=== PATIENT | female | born 1945 | race Caucasian/White ===

== ENCOUNTER 2022-03-04 13:50 | Emergency (ER) | payer BC, MEDICAID ==
[~2022-03-04] VITALS: Ht 175.3 cm; Wt 113.6 kg
[~2022-03-04 13:50] MED LIST: ACET-3209 PO; ALBU18HF2 IH; BUPR150T27 PO; COU3T PO; ESCI20TA29 PO; ESOM40CA49 PO; GABA-338 PO; LEVO150T62 PO; LEVO175T38 PO; LISI-222 PO; LORA10CA PO; LOVA20TA2 PO; MECL-159 PO; MULT-1141 PO; PANT40TA54 PO; POTA8TAB69
[2022-03-04] MEDS ORDERED: BEBTELOVIMAB 175 MG/2 ML VIAL IV ONE (15:50)
[2022-03-04 16:41] VITALS: BP 130/81
== END 2022-03-04 16:43 | disposition home or self-care (01) ==
LOC: ER 13:51
DX: U07.1 COVID-19 (principal); I10 Essential (primary) hypertension; E03.9 Hypothyroidism, unspecified; Z88.0 Allergy status to penicillin; Z88.2 Allergy status to sulfonamides; Z79.899 Other long term (current) drug therapy; Z79.1 Long term (current) use of non-steroidal anti-inflammatories (NSAID); Z79.2 Long term (current) use of antibiotics
CPT/HCPCS: 71046; 87502; 87503; 87635; 99284; C9803; M0222; Q0222

== ENCOUNTER 2023-06-05 17:06 | Emergency (ER) | payer BC, MEDICAID ==
[~2023-06-05] VITALS: Ht 180.3 cm; Wt 108.2 kg
[~2023-06-05 17:06] MED LIST changes: -MECL-159 PO; +MECL-302 PO
[2023-06-05 17:09] VITALS: TEMP 97.8
[2023-06-05 18:15] LABS: BASOPHILS % (AUTO) 0.2 % (0-1); EOSINOPHILS % (AUTO) 0 % (0-6); HEMATOCRIT 36.5 % (35.0-45.0); HEMOGLOBIN 12.6 g/dl (12.0-16.0); LYMPHOCYTES % (AUTO) 20.7 % (21-51); MEAN CORPUSCULAR HEMOGLOBIN 29.7 PG (27.0-31.0); MEAN CORPUSCULAR HGB CONC 34.6 g/dL (33.0-36.5); MEAN CORPUSCULAR VOLUME 85.9 FL (78-98); MEAN PLATELET VOLUME 7.6 FL (7.4-10.4); MONOCYTES # (AUTO) 0.7 X10'3 (0-0.9); MONOCYTES % (AUTO) 14.9 % (2-12); NEUTROPHILS # (AUTO) 3.2 X10'3 (1.8-7.7); NEUTROPHILS % (AUTO) 64.2 % (42-75); PLATELET COUNT 196 X10'3 (140-440); RED BLOOD COUNT 4.24 X10'6 (4.20-5.60); RED CELL DISTRIBUTION WIDTH 13.4 % (11.5-14.5)
[2023-06-05 18:38] LABS: ALBUMIN 3.6 G/DL (3.4-5.0); ANION GAP 9 (8-16); BLOOD UREA NITROGEN 16 MG/DL (7-18); BUN/CREATININE RATIO 20.5 (10.0-20.0); CALCIUM 9.8 MG/DL (8.5-10.1); CHLORIDE 100 MMOL/L (99-107); CREATININE 0.78 MG/DL (0.40-0.90); GLUCOSE 119 MG/DL (70-104); POTASSIUM 3.7 MMOL/L (3.5-5.1); PRO BRAIN NATRIURETIC PEPTIDE 144 PG/ML (0-450); SODIUM 135 MMOL/L (135-145); TOTAL CARBON DIOXIDE 26.5 MMOL/L (24-32); eCRCL 65 ML/MIN; eGFR 71 ML/MIN
[2023-06-05 20:22] LABS: D-DIMER 1.06 MG/L FEU (0-0.50)
[2023-06-05] MEDS ORDERED: iohexol 350MG/ML 100ml bottle IV ONE (20:50)
[2023-06-05 23:23] VITALS: BP 109/81; PULSE 95; RESP 21; O2SAT 97
== END 2023-06-05 23:26 | disposition home or self-care (01) ==
LOC: ER 17:07
DX: R06.00 Dyspnea, unspecified (principal); I10 Essential (primary) hypertension; Z88.0 Allergy status to penicillin; Z88.2 Allergy status to sulfonamides; Z79.899 Other long term (current) drug therapy; Z79.2 Long term (current) use of antibiotics
CPT/HCPCS: 36415; 71045; 71275; 80048; 83880; 84484; 85025; 85379; 93005; 99285; J3490; Q9967

== ENCOUNTER 2023-07-31 11:15 | Outpatient (CLI) | payer MEDICARE, MEDICAID | END 2023-07-31 23:59 | disposition home or self-care (01) | LOC: RAD 11:15 | PROVIDERS: ATTEND Internal Medicine | DX: I27.20 Pulmonary hypertension, unspecified (principal); K44.9 Diaphragmatic hernia without obstruction or gangrene | CPT/HCPCS: 71046; 78582; A9539; A9540 ==

== ENCOUNTER 2023-08-23 10:06 | Day surgery (SDC) | payer BC, MEDICAID ==
[2023-08-22 17:24] LABS: BASOPHILS % (AUTO) 0.3 % (0-1); EOSINOPHILS % (AUTO) 0.1 % (0-6); HEMATOCRIT 36.4 % (35.0-45.0); HEMOGLOBIN 12.3 g/dl (12.0-16.0); LYMPHOCYTES # (AUTO) 1.1 X10'3 (1.1-4.8); LYMPHOCYTES % (AUTO) 21.4 % (21-51); MEAN CORPUSCULAR HEMOGLOBIN 28.8 PG (27.0-31.0); MEAN CORPUSCULAR HGB CONC 33.7 g/dL (33.0-36.5); MEAN CORPUSCULAR VOLUME 85.6 FL (78-98); MEAN PLATELET VOLUME 7.1 FL (7.4-10.4); MONOCYTES # (AUTO) 0.6 X10'3 (0-0.9); MONOCYTES % (AUTO) 11.9 % (2-12); NEUTROPHILS # (AUTO) 3.3 X10'3 (1.8-7.7); NEUTROPHILS % (AUTO) 66.3 % (42-75); PLATELET COUNT 207 X10'3 (140-440); RED BLOOD COUNT 4.26 X10'6 (4.20-5.60); RED CELL DISTRIBUTION WIDTH 14.2 % (11.5-14.5); WHITE BLOOD COUNT 4.9 X10'3 (4.5-11.0)
[2023-08-22 17:30] LABS: ALBUMIN 3.6 G/DL (3.4-5.0); ANION GAP 7 (8-16); BLOOD UREA NITROGEN 15 MG/DL (7-18); BUN/CREATININE RATIO 18.8 (10.0-20.0); CALCIUM 9.4 MG/DL (8.5-10.1); CHLORIDE 100 MMOL/L (99-107); GLUCOSE 94 MG/DL (70-104); POTASSIUM 3.6 MMOL/L (3.5-5.1); SODIUM 136 MMOL/L (135-145); TOTAL CARBON DIOXIDE 29.5 MMOL/L (24-32); eGFR 69 ML/MIN
[2023-08-22 17:33] LABS: APTT 28 SECONDS (22-32); INR 1.1 INR; PROTHROMBIN TIME 11.4 SECONDS (9.0-12.0)
[~2023-08-23] VITALS: Ht 175.3 cm; Wt 105.3 kg
[2023-08-23] VITALS (14 sets, daily range): BP systolic 92–116; BP diastolic 43–77; PULSE 72–88; RESP 12–21; TEMP 97.9; O2SAT 86–100
[2023-08-23] MEDS ORDERED: MONT-40 PO (11:00)
[2023-08-23] MEDS ORDERED: FURO20TA4 PO (11:00)
[2023-08-23] MEDS ORDERED: DULO-31 PO (11:00)
[2023-08-23] MEDS ORDERED: LEVO150T8 PO (11:00)
[2023-08-23] MEDS ORDERED: FLUT1BLS4 INH (11:00)
[2023-08-23] MEDS ORDERED: POTA-206 PO (11:00)
[2023-08-23] MEDS ORDERED: LISI10TA27 PO (11:00)
[2023-08-23] MEDS ORDERED: CHOL20002 PO (11:00)
[2023-08-23] MEDS ORDERED: DULO60CA65 PO (11:00)
[2023-08-23] MEDS ORDERED: ASPI81TA52 PO (11:00)
[2023-08-23] MEDS ORDERED: ASCO100031 PO (11:13)
[2023-08-23] MEDS ORDERED: GLUC-162 PO (11:13)
[2023-08-23] MEDS ORDERED: vitamin d (11:15)
[2023-08-23] MEDS ORDERED: verapamil 2.5 mg/ml inj IV ONE (11:20)
[2023-08-23] MEDS ORDERED: fentaNYL/PF 50MCG/1 ML 2ML syringe ONE (11:20)
[2023-08-23] MEDS ORDERED: midazolam 1 mg/ML 2ml injection ONE (11:20)
[2023-08-23] MEDS ORDERED: LIDOcaine 1% (10mg/ml) 2ml vial ONE (11:20)
[2023-08-23] MEDS ORDERED: heparin 1,000unit/ml 10ml vial 10 ML ONE (11:21)
[2023-08-23] MEDS ORDERED: iohexol 350MG/ML 100ml bottle IV ONE (11:21)
[2023-08-23] MEDS ORDERED: nitroGLYCERIN 500mcg/5mL D5W 5 ML IV ONE (11:21)
[2023-08-23] MEDS ORDERED: iohexol 350 MG/ML 50ML vial IV ONE (11:21)
[2023-08-23] MEDS: normal saline 1,000 ML IV SCH (11:24)
[2023-08-23] MEDS: LORazepam 0.5 MG tablet PO PRN (11:24)
[2023-08-23] MEDS: diphenhydrAMINE 25mg capsule PO PRN (11:25)
[2023-08-23] MEDS ORDERED: LIDOcaine 1% 30ml preserv. free vial ONE (12:07)
[2023-08-23] MEDS ORDERED: HYDROmorphone 1 mg/ml syringe ONE (13:13)
[2023-08-23] MEDS ORDERED: normal saline 1,000 ML IV SCH (13:55)
[2023-08-23 17:07] LABS: ISTAT HGB ART 10.5 g/dl (12.0-16.0); ISTAT HGB MIX 10.5 g/dl (12.0-16.0); ISTAT Hct ART 31 %PCV (35-45); ISTAT Hct MIX 31 %PCV (35-45); ISTAT O2 SATURATION ARTERIAL 97 % (95-98); ISTAT O2 SATURATION MIX VENOUS 52 % (60-80); ISTAT SOURCE BLNK
== END 2023-08-23 17:55 | disposition home or self-care (01) ==
LOC: SSTAY O 10:06 → EDSTATUS 12:00 → SSTAY O 17:55
PROVIDERS: ATTEND Internal Medicine Cardiovascular Disease
DX: R94.39 Abnormal result of other cardiovascular function study (principal); I45.10 Unspecified right bundle-branch block; I10 Essential (primary) hypertension; E78.5 Hyperlipidemia, unspecified; G47.33 Obstructive sleep apnea (adult) (pediatric); Z79.01 Long term (current) use of anticoagulants; Z79.82 Long term (current) use of aspirin; Z79.890 Hormone replacement therapy; Z79.899 Other long term (current) drug therapy; Z90.49 Acquired absence of other specified parts of digestive tract; Z96.651 Presence of right artificial knee joint; Z98.41 Cataract extraction status, right eye; Z98.42 Cataract extraction status, left eye; Z98.890 Other specified postprocedural states; Z82.49 Family history of ischemic heart disease and other diseases of the circulatory system
CPT/HCPCS: 36415; 80048; 82803; 85014; 85025; 85610; 85730; 93005; 93460; 99152; 99153; A6258; J1170; J1644; J2250; J3010; J3490; J7030; Q0163; Q9967; 76937; A4615; A6402; C1725; C1751; C1760; C1769; C1894

== ENCOUNTER 2025-03-17 15:28 | Outpatient (CLI) | payer BC, MEDICAID ==
[~2025-03-17 15:28] MED LIST changes: -ACET-3209 PO; -ALBU18HF2 IH; +ASCO10004 PO; +ASPI81TA52 PO; -BUPR150T27 PO; +CHOL20002 PO; -COU3T PO; +DULO60CA65 PO; -ESCI20TA29 PO; -ESOM40CA49 PO; +FLUT1BLS4 INH; +FURO20TA4 PO; +GLUC-162 PO; -LEVO150T62 PO; +LEVO150T8 PO; -LEVO175T38 PO; -LISI-222 PO; +LISI10TA27 PO; -MECL-302 PO; +MONT-40 PO; +POTA-206 PO; -POTA8TAB69
--- NOTE | 2025-03-17 17:09 | RADIOLOGY REPORT ---
DI CHEST,TWO VIEWS CLINICAL HISTORY: COPD COMPARISON: DI CHEST,TWO VIEWS on DOS: 07/31/23, CHEST,TWO VIEWS on DOS: 03/04/22 TECHNIQUE: Frontal and lateral view of the chest was obtained FINDINGS: Lines and Tubes: None Lungs: No focal consolidation. Pleura: No effusion. No pneumothorax. Large hiatal hernia. Elevation of the right hemidiaphragm. Cardiomediastinal contours:Mild cardiomegaly Bones: No acute osseous abnormality. IMPRESSION: Large hiatal hernia. Difficult to exclude retrocardiac opacity. Otherwise, no evidence for acute cardiopulmonary disease.
== END 2025-03-17 23:59 | disposition home or self-care (01) ==
LOC: RAD 15:28
PROVIDERS: ATTEND Internal Medicine Critical Care Medicine
DX: J44.9 Chronic obstructive pulmonary disease, unspecified (principal); Q79.1 Other congenital malformations of diaphragm; J96.01 Acute respiratory failure with hypoxia; I51.7 Cardiomegaly
CPT/HCPCS: 71046